=== PATIENT | male | born 1995 | race African-American/Black ===

== ENCOUNTER 2018-03-14 02:38 | Emergency (ER) | payer SELFPAY ==
[2018-03-14 03:04] LABS: Bilirubin Negative (Negative); Blood, Urine Small (Negative); Clarity CLOUDY (Clear); Glucose, Urine (Dipstick) Negative (Negative); Leukocyte Large (Negative); Nitrite Negative (Negative); Protein, Urine (Dipstick) Trace mg/dL (Neg-Trace); Specific Gravity, Urine 1.024 (1.002-1.036)
[2018-03-14 03:07] LABS: Bacteria/HPF None Seen HPF (None Seen); Hyaline Casts/LPF 0-3 HYALINE CAST LPF (0-3 Hyaline); Pathc Cast-AUWi Flag 0.14 (0-2.49); Squamous Epithelial None Seen HPF (0-3)
[2018-03-14] MEDS ORDERED: Azithromycin 250 MG TAB ONE (03:10)
[2018-03-14] MEDS ORDERED: Lidocaine 1% PF 5 ML VIAL ONE (03:10)
[2018-03-14] MEDS ORDERED: cefTRIAXone\\ROCEPHIN 250 MG VIAL ONE (03:10)
[2018-03-17 01:23] LABS: Chlamydia by PCR Inconclusive (NotDetected); GC by PCR Inconclusive (NotDetected)
== END 2018-03-14 03:34 | disposition home or self-care (01) ==
LOC: ERS 02:38
DX: N34.2 Other urethritis (principal)
CPT/HCPCS: 81003; 81015; 87491; 87591; 96372; J0696; J2001